=== PATIENT | female | born 2005 | race African-American/Black ===

== ENCOUNTER 2023-05-24 14:47 | Emergency (ER) | payer BC, OTHER ==
[2023-05-24] MEDS ORDERED: Dexamethasone 10 MG/ML VIAL ONE (16:04)
[2023-05-24] MEDS ORDERED: Ketorolac Tromethamine 30 MG/ML VIAL ONE (16:05)
[2023-05-24] MEDS ORDERED: Ondansetron PF 4 MG/2 ML Vial ONE (16:05)
[2023-05-24 16:22] LABS: Hematocrit 35.1 % (36.0-47.0); Hemoglobin 11.4 g/dL (12.0-16.0); Manual Diff?? YES; Mean Corpuscular HGB CONC 32.5 g/dL (32.0-36.0); Mean Corpuscular Hemoglobin 24.4 pg (25.0-35.0); Mean Platelet Volume 9.6 fL (7.4-10.4); Platelet Count 344 10x3/uL (130-400); RBC Distribution Width 14.9 % (11.5-14.5); Red Blood Cell (RBC) Count 4.68 mill/uL (4.00-5.20); White Blood Cell (WBC) Count 19.4 10x3/uL (4.8-10.8)
[2023-05-24 16:29] LABS: Delete Auto Diff?? YES
[2023-05-24 16:48] LABS: MONO NEGATIVE CONTROL ZONE White (Negative) (White); MONO POSITIVE CONTROL Pink Line (Positive) (PINK/RED); Mononucleosis NEGATIVE (NEGATIVE)
[2023-05-24 16:50] LABS: Band 1 % (5-11); CellaVision Operator ID LAB.MJL; Lymphocytes 57 % (28-48); Neutrophil 20 % (31-61); Platelet Adequacy Comment Platelets Normal; Polychromasia SLIGHT = 2-3 cells HPF (0-2); Reactive Lymphocytes 21 % (0-10); Total Cell Count 104
[2023-05-24 16:57] LABS: Bacteria/HPF None Seen HPF (None Seen); Bilirubin Negative (Negative); Blood, Urine Negative (Negative); CAUTI Indications for Culture Fever or rigors; Clarity Clear (Clear); Glucose, Urine (Dipstick) Normal (Negative); Ketone, Urine Negative (Negative); Leukocyte Negative Leu/uL (Negative); Nitrite Negative (Negative); Protein, Urine (Dipstick) 20 mg/dL (Neg-Trace); RBC/HPF 0-3 HPF (0-3); Specific Gravity, Urine 1.031 (1.002-1.036); Urobilinogen Normal mg/dL (Less than 2)
[2023-05-24 16:59] LABS: Pregnancy Test - Urine (BHCG) Negative (Negative); Pregu Control Background? CLEAR/WHITE (CLR/WHITE); Pregu Control Bar Appear? YES (CONTROL BAR); Specific Gravity 1.031 (1.002-1.036); Urine Culture Reflex No No
[2023-05-24 17:07] LABS: ALT (SGPT) 215 U/L (8-55); AST (SGOT) 159 U/L (5-30); Albumin 4.1 g/dL (3.5-5.0); Alkaline Phosphatase 151 U/L (40-100); Anion Gap 15 mmol/L (10-20); BUN (Urea Nitrogen) 12 mg/dL (8.4-21.0); Bilirubin, Total 0.3 mg/dL (0.2-1.2); Calc. Creatinine Clearance 0 mL/min (70-130); Calcium 9.2 mg/dL (7.8-10.44); Carbon Dioxide 20 mmol/L (22-29); Chloride 104 mmol/L (98-107); Estimated GFR 109; Globulin 3.9 g/dL (2.4-3.5); Glucose 68 mg/dL (70-105); Magnesium 1.8 mg/dL (1.7-2.2); Potassium 3.7 mmol/L (3.5-5.1); Sodium 135 mmol/L (136-145)
== END 2023-05-24 18:25 | disposition home or self-care (01) ==
LOC: ERS 14:47
DX: J02.0 Streptococcal pharyngitis (principal)
CPT/HCPCS: 71045; 80053; 81001; 81025; 83605; 83735; 85025; 86308; 87081; 87430; 96361; 96374; 96375; J1100; J1885; J2405